=== PATIENT | male | born 1950 | race Caucasian/White ===

== ENCOUNTER → 2020-08-01 | Day surgery (SDC) | payer OTHER ==
[~2020-08-01] MED LIST: ASPIRIN81 MG PO; CLARITIN10 MG PO; COMBIVENT RESPIM4 GM INH; IPRAT-ALBUT 0.5-3 ML INH; LISINOPRIL10 MG PO; MELOXICAM7.5 MG PO; PROTONIX 40 MG40 M1 PO; SPIRIVA RESPIMAT4 GM INH; SYMBICORT 160-1 INHA INH
== END | disposition home or self-care (01) ==
LOC: OR 06:11
PROVIDERS: Surgery
PROC: 0DB78ZX Excision of Stomach, Pylorus, Via Natural or Artificial Opening Endoscopic, Diagnostic (ICD-10-PCS; principal; 2020-08-01 07:30)
PROC: 0DJD8ZZ Inspection of Lower Intestinal Tract, Via Natural or Artificial Opening Endoscopic (ICD-10-PCS; 2020-08-01 07:30)
DX: Z12.11 Encounter for screening for malignant neoplasm of colon (principal); K21.9 Gastro-esophageal reflux disease without esophagitis; K29.70 Gastritis, unspecified, without bleeding; K44.9 Diaphragmatic hernia without obstruction or gangrene; K57.90 Diverticulosis of intestine, part unspecified, without perforation or abscess without bleeding; J30.9 Allergic rhinitis, unspecified; N40.1 Benign prostatic hyperplasia with lower urinary tract symptoms; R35.1 Nocturia; F17.210 Nicotine dependence, cigarettes, uncomplicated; E78.5 Hyperlipidemia, unspecified; I10 Essential (primary) hypertension; J44.9 Chronic obstructive pulmonary disease, unspecified; R73.03 Prediabetes; Z79.2 Long term (current) use of antibiotics; Z79.1 Long term (current) use of non-steroidal anti-inflammatories (NSAID); Z79.899 Other long term (current) drug therapy; Z20.822 Contact with and (suspected) exposure to COVID-19
CPT/HCPCS: 43239; G0121; J2001; J2704; J7030

== ENCOUNTER → 2020-10-13 | Outpatient (CLI) | payer OTHER | LOC: CT 07:16 | DX: K55.059 Acute (reversible) ischemia of intestine, part and extent unspecified (principal); K57.30 Diverticulosis of large intestine without perforation or abscess without bleeding | CPT/HCPCS: 36415; 82565; Q9967 ==

== ENCOUNTER → 2021-05-04 | Outpatient (CLI) | payer OTHER | LOC: KOH-I 11:30 | DX: Z87.891 Personal history of nicotine dependence (principal); R91.8 Other nonspecific abnormal finding of lung field | CPT/HCPCS: 71271 ==

== ENCOUNTER → 2021-11-06 | Outpatient (CLI) | payer OTHER | LOC: HEART 5 11-05 15:00 | DX: I48.91 Unspecified atrial fibrillation (principal); R53.83 Other fatigue; R00.2 Palpitations ==